=== PATIENT | female | born 1960 | race Caucasian/White ===

== ENCOUNTER 2016-12-12 15:15 | Observation (INO) ==
[2016-12-12] MEDS ORDERED: Aspirin 81 MG TAB.CHEW PO ONE (15:54)
[2016-12-12] MEDS ORDERED: Lidocaine -MPF 1% 5 ML AMPUL INFILT ONE (15:57)
--- NOTE | 2016-12-12 15:57 | Emergency Department Note ---
Disposition Clinical Impression: Chest pain Qualifiers: Chest pain type: unspecified Qualified Code(s): R07.9 - Chest pain, unspecified Disposition: Admitted As Inpatient Condition: Good Forms: ED Satisfaction Letter Time of Disposition: 17:11 Chest Pain HPI - General Chief Complaint: ED Chest Pain Stated Complaint: chest pain Time Seen by Provider: 12/12/16 15:39 Source: patient, EMS Mode of arrival: EMS Limitations: no limitations Vital Signs Reviewed: Yes Nursing Notes Reviewed: Yes - History of Present Illness HPI Narrative: 56-year-old has had some intermittent chest pain for the last week. Patient states she's had no recent cardiac workup. Multiple risk factors. Pt complaint: chest pain Onset (ago): Just [employer] Duration: intermittent Onset: during rest Pain Location: substernal, left chest Quality: tightness, aching Improves with: nothing Worsens with: exertion Associated symptoms: Reports: dyspnea Treatments prior to arrival chest pain: none - Related Data Home Medications Medication Instructions Recorded Confirmed Lovastatin [Mevacor] 10 mg PO DAILY 12/18/14 09/22/16 Lurasidone [Latuda] 20 mg PO DAILY 12/18/14 09/22/16 Furosemide [Lasix] 40 mg PO BID 09/25/15 09/22/16 Sennosides [Senna] 3 tab PO BID 01/23/16 09/22/16 Ferrous Sulfate [Iron] 325 mg PO DAILY 05/13/16 09/22/16 Gabapentin [Neurontin] 300 mg PO TID 05/13/16 09/22/16 Melatonin [Melatonin] 3 mg PO HS 05/13/16 09/22/16 Escitalopram [Lexapro] 5 mg PO DAILY 06/07/16 09/22/16 Warfarin Sodium [Coumadin] 6 mg PO HS 06/07/16 09/22/16 Polyethylene Glycol 3350 17 gm PO DAILY 07/26/16 09/22/16 [Smoothlax] Acetaminophen [Tylenol] 325 mg PO Q4HR PRN 09/22/16 09/22/16 Benztropine [Cogentin] 1 mg PO DAILY 09/22/16 09/22/16 Cholecalciferol (Vitamin D3) 50,000 unit PO QWEEK 09/22/16 09/22/16 [Vitamin D] Cyclobenzaprine [Flexeril] 5 mg PO BID PRN 09/22/16 09/22/16 Lansoprazole [Prevacid] 30 mg PO DAILY 09/22/16 09/22/16 Metoclopramide [Reglan] 10 mg PO QIDAC 09/22/16 09/22/16 Oxycodone HCl [Oxaydo] 1 - 2 tab PO Q6H PRN 09/22/16 09/22/16 Promethazine [Phenergan] 25 mg PO Q6HR PRN 09/22/16 09/22/16 Sucralfate [Carafate] 1 gm PO TIDAC 09/22/16 09/22/16 Allergies Allergy/AdvReac Type Severity Reaction Status Date / Time ondansetron AdvReac Nausea Verified 11/28/16 19:54 [From Zofran (as hydrochloride)] All systems ED: reviewed and negative except as stated. Constitutional: Denies: fever, chills, weakness, weight change Eyes: Denies: eye pain, eye discharge, vision change ENT ED: Denies: ear pain, throat pain, dental pain, hearing loss, epistaxis, congestion, dysphagia Cardiovascular: Reports: chest pain. Denies: palpitations, dyspnea on exertion , edema, syncope Respiratory: Denies: cough, dyspnea, wheezes, hemoptysis, stridor Gastrointestinal: Denies: abdominal pain, nausea, vomiting, diarrhea, constipation, hematemesis, melena, hematochezia Genitourinary: Denies: dysuria, frequency, hematuria, discharge Musculoskeletal: Denies: back pain, neck pain, arthralgia, myalgia Integumentary: Denies: rash, abrasion, lesions Neurological: Denies: headache, weakness, numbness, paresthesias, confusion, abnormal gait, vertigo Psychiatric: Denies: anxiety, depression, suicidal thoughts, homicidal thoughts , auditory hallucinations, visual hallucinations Endocrine: Denies: fatigue Hematological/Lymphatic: Denies: easy bleeding, easy bruising Allergic/Immunologic: Denies: facial swelling, urticaria Chest Pain PMH - Past Medical History Medical history: Reports: arthritis, CHF, coronary artery disease, CVA, DVT, diabetes, GERD, hypertension, migraine Surgical history: Reports: cholecystectomy, hysterectomy Psychiatric history: Reports: anxiety, bipolar, depression Prior Cardiac Testing/Procedures: Cardiac Angiogram (Report of minimal coronary disease one month ago.) [employer] MODEL MAKER history: Reports: no MINI[employer] MODEL MAKER history - Social History Smoking Status: Never smoker Alcohol use: Reports: none Drug use: Reports: none Physical Exam - General Limitations: no limitations General appearance: alert, in no apparent distress - Head Head exam: atraumatic, normocephalic, normal inspection - Eye Eye exam: Present: normal appearance, PERRL, EOMI - ENT ENT exam: normal exam, normal oropharynx, mucous membranes moist - Neck Neck exam: Present: normal inspection, full ROM, trachea midline - Chest Chest inspection: Present: normal inspection, symmetric chest wall rise - Respiratory Respiratory exam: Present: normal lung sounds bilaterally - Cardiovascular Cardiovascular exam: Present: regular rate, normal rhythm, normal heart sounds - Abdominal Exam Abdominal exam: Present: soft, Non-Tender. Absent: tenderness, distention, guarding, rebound, rigidity - Extremities Exam Extremities exam: Present: normal inspection, full ROM. Absent: tenderness, pedal edema - Expanded Lower Extremity Exam Neurovascular/Tendon exam: Absent: motor deficit, sensory deficit, tendon deficit Gait: not tested/not observed - Back Exam Back exam: Present: normal inspection, full ROM. Absent: tenderness - Neurological Exam Neurological exam: Present: alert, oriented X3 - Psychiatric Psychiatric exam: Present: normal affect, normal mood - Skin Skin exam: Present: warm, dry, intact, normal color Course - Reevaluation(s) Reevaluation #1: 56-year-old multiple risk factors comes in complaining of intermittent chest pain. Initial troponin is negative EKG shows no acute STEMI. Time: 17:09 - Consultations Consultation #1: Discussed with Be Bahena, admit. Time: 17:10 Vital Signs Temperature 97.9 F 12/12/16 15:43 Pulse Rate 73 12/12/16 15:43 Respiratory Rate 20 12/12/16 15:43 Blood Pressure 140/71 12/12/16 15:43 O2 Sat by Pulse Oximetry 94 12/12/16 15:43 Temperature 97.9 F 12/12/16 15:43 Pulse Rate 73 12/12/16 15:43 Respiratory Rate 20 12/12/16 15:43 Blood Pressure 140/71 12/12/16 15:43 O2 Sat by Pulse Oximetry 94 12/12/16 15:43 Oxygen Delivery Oxygen Delivery Room Air Chest Pain - Lab Data Result diagrams: 12/12/16 16:16 12/12/16 16:16 Lab Results 12/12/16 12/12/16 12/12/16 Range/Units 16:16 16:16 16:16 WBC 7.6 (4.3-11.1) K/mcL RBC 3.94 (3.82-4.97) M/mcL Hgb 9.8 L (11.5-15.4) g/dL Hct 34.3 L (35.3-44.9) % MCV 87.1 (83.0-100.0) fL MCH 24.9 L (28.0-33.3) pg MCHC 28.6 L (31.6-35.5) g/dL RDW 19.0 H (11.5-14.5) % Plt Count 208 (140-400) K/mcL MPV 9.2 L (9.4-12.4) fL Immature Gran % 0.4 (0-4) % Seg Neutrophils % 64.9 % Lymphocytes % 25.6 % Monocytes % 7.0 % Eosinophils % 1.8 % Basophils % 0.3 % Neutrophils # 4.9 (1.6-8.9) K/mcL Lymphocytes # 2.0 (0.6-4.6) K/mcL Monocytes # 0.5 (0.0-1.3) K/mcL Eosinophils # 0.1 (0.0-0.6) K/mcL Basophils # 0.0 (0.0-0.2) K/mcL Platelet Estimate Normal (Normal) Hypochromasia Present A (Not Present) Anisocytosis 1+ A (Not Present) PT 25.7 H (9.4-12.1) Seconds INR 2.3 APTT 38.8 H (26.0-36.0) Seconds Sodium 137 (136-145) mEq/L Potassium 3.9 (3.5-4.5) mEq/L Chloride 94 L (98-109) mEq/L Carbon Dioxide 35 H (19-29) mEq/L BUN 15 (7-20) mg/dL Creatinine 1.19 H (0.57-1.11) mg/dL Est GFR ( Amer) 57 L (> 60) Est GFR (Non-Af Amer) 47 L (> 60) BUN/Creatinine Ratio 13 (6-26) Glucose 97 (70-99) mg/dL Calculated Osmolality 285 (280-300) Calcium 9.4 (8.6-10.8) mg/dL Troponin I (0-0.03) ng/mL 12/12/16 Range/Units 16:16 WBC (4.3-11.1) K/mcL RBC (3.82-4.97) M/mcL Hgb (11.5-15.4) g/dL Hct (35.3-44.9) % MCV (83.0-100.0) fL MCH (28.0-33.3) pg MCHC (31.6-35.5) g/dL RDW (11.5-14.5) % Plt Count (140-400) K/mcL MPV (9.4-12.4) fL Immature Gran % (0-4) % Seg Neutrophils % % Lymphocytes % % Monocytes % % Eosinophils % % Basophils % % Neutrophils # (1.6-8.9) K/mcL Lymphocytes # (0.6-4.6) K/mcL Monocytes # (0.0-1.3) K/mcL Eosinophils # (0.0-0.6) K/mcL Basophils # (0.0-0.2) K/mcL Platelet Estimate (Normal) Hypochromasia (Not Present) Anisocytosis (Not Present) PT (9.4-12.1) Seconds INR APTT (26.0-36.0) Seconds Sodium (136-145) mEq/L Potassium (3.5-4.5) mEq/L Chloride (98-109) mEq/L Carbon Dioxide (19-29) mEq/L BUN (7-20) mg/dL Creatinine (0.57-1.11) mg/dL Est GFR ( Amer) (> 60) Est GFR (Non-Af Amer) (> 60) BUN/Creatinine Ratio (6-26) Glucose (70-99) mg/dL Calculated Osmolality (280-300) Calcium (8.6-10.8) mg/dL Troponin I 0.00 (0-0.03) ng/mL - EKG Data EKG attestation: Yes I reviewed and interpreted this EKG. EKG shows normal: sinus rhythm Rate: normal Rhythm: NSR Interpretation: no acute changes Heart Score - Score History: Moderately Suspicious EKG: Non Specific repolarisation Disturbance Age: 45-65 Risk Factors: Equal/Greater than 3 risk factor or history of atherosclerotic disease Troponin: Less than normal limit HEART Score Total: 5
[2016-12-12 16:23] LABS: Basophils % 0.3 %; Hemoglobin 9.8 g/dL (11.5-15.4)
[2016-12-12 16:24] LABS: Eosinophils # 0.1 K/mcL (0.0-0.6); Eosinophils % 1.8 %; Hematocrit 34.3 % (35.3-44.9); Immature Granulocytes % 0.4 % (0-4); Lymphocytes % 25.6 %; Mean Corpuscular HGB Conc 28.6 g/dL (31.6-35.5); Mean Corpuscular Hemoglobin 24.9 pg (28.0-33.3); Mean Corpuscular Volume 87.1 fL (83.0-100.0); Mean Platelet Volume 9.2 fL (9.4-12.4); Monocytes # 0.5 K/mcL (0.0-1.3); Neutrophils # 4.9 K/mcL (1.6-8.9); Platelet Count 208 K/mcL (140-400); Red Blood Count 3.94 M/mcL (3.82-4.97); Segmented Neutrophils % 64.9 %
[2016-12-12 16:31] LABS: INR 2.3; Prothrombin Time 25.7 Seconds (9.4-12.1)
[2016-12-12 16:34] LABS: Activated Partial Thrombo Time 38.8 Seconds (26.0-36.0)
[2016-12-12 16:37] LABS: Calcium 9.4 mg/dL (8.6-10.8); Potassium 3.9 mEq/L (3.5-4.5)
[2016-12-12 16:54] LABS: Anisocytosis 1+ (Not Present); Hypochromasia Present (Not Present); Platelet Estimate Normal (Normal)
[2016-12-12] MEDS ORDERED: Acetaminophen 325 MG TABLET PO PRN (21:19)
[2016-12-12] MEDS ORDERED: Naloxone 0.4 MG/ML INJ IVP PRN (21:19)
[2016-12-12] MEDS ORDERED: Ondansetron 4 MG/2 ML VIAL IVP PRN (21:19)
[2016-12-12] MEDS ORDERED: Artificial Tears SOLN 15 ML BOTTLE OP PRN (21:24)
--- NOTE | 2016-12-12 21:55 | Internal Med History&Physical ---
<ClaritzakahlilwilmerBe darnell - Last Filed: 12/12/16 22:34> Date of Encounter: 12/12/16 Time of Encounter: 20:30 Assessment and Plan (1) Chest pain Current visit: Yes Status: Acute Patient presents with acute chest pain that she reports as intermittent over the past week. Patient denies any recent cardiac workup. She states that her chest pain is located in her left chest without radiation but that it worsens with exertion. Initial troponin is 0.00. Will trend troponin x2. Echocardiogram ordered. D-dimer and CTA of the chest ordered to rule out possible PE due to patient's hx of DVT. If D-dimer and troponin negative, then will schedule nuclear stress test tomorrow with patient to be NPO at midnight. Will consider cardiology consult based on echocardiogram and/or stress test results. Patient placed on continuous cardiac telemetry and supplemental O2 with SpO2 monitoring. Qualifiers: Chest pain type: other chest pain Qualified Code(s): R07.89 - Other chest pain; R07.8 - Other chest pain (2) CHF (congestive heart failure) Current visit: Yes Status: Chronic Patient presents with history of chronic CHF. Patient is currently reporting mild SOB and 1-View CXR today shows there is pulmonary vascular congestion basilar airspace disease bilaterally compatible with pulmonary edema. Overall this appears decreased when compared to the previous exam from 11/28/16. Will hold patient's PO lasix and administer IVP Lasix 40 mg BID. Patient placed on supplemental O2 with continuous SpO2 monitoring. Qualifiers: Congestive heart failure type: unspecified congestive heart failure type Congestive heart failure chronicity: unspecified congestive heart failure chronicity Qualified Code(s): I50.9 - Heart failure, unspecified (3) CAD (coronary artery disease) Current visit: Yes Status: Chronic Patient presents with history of CAD. Patient reports chest pain in left chest without radiation. Will continue patient's lovastatin and add Lopressor if patient becomes hypertensive. Will also continue aspirin therapy and Coumadin with pharmacy dosing. Patient placed on continuous cardiac telemetry. Qualifiers: Coronary Disease-Associated Artery/Lesion type: unspecified vessel or lesion type [place] vs. transplanted heart: [place] heart Associated angina: angina presence unspecified Qualified Code(s): I25.10 - Atherosclerotic heart disease of [place] coronary artery without angina pectoris (4) History of DVT of lower extremity Current visit: Yes Status: Chronic Patient reports history of DVTs in lower extremity 6 months ago. Will continue patient's Coumadin with pharmacy dosing. Venous Dopplers of bilateral LEs to rule out DVTs. (5) GERD (gastroesophageal reflux disease) Current visit: Yes Status: Chronic Patient reports history of chronic gastroesophageal reflux disease. IVP Zofran every 6 when necessary and IVP Protonix 40 mg twice a day ordered. Qualifiers: Esophagitis presence: esophagitis presence not specified Qualified Code(s) : K21.9 - Gastro-esophageal reflux disease without esophagitis (6) HTN (hypertension) Current visit: Yes Status: Chronic Patient presents with history of chronic hypertension but does not currently take any antihypertensive medications. Will monitor patient's vital signs and Lopressor if patient becomes hypotensive. Qualifiers: Hypertension type: essential hypertension Qualified Code(s): I10 - Essential (primary) hypertension (7) HLD (hyperlipidemia) Current visit: Yes Status: Chronic Patient presents with history of chronic hyperlipidemia. Lipid panel ordered and will continue patient's lovastatin. Qualifiers: Hyperlipidemia type: pure hypercholesterolemia Qualified Code(s): E78.00 - Pure hypercholesterolemia, unspecified; E78.0 - Pure hypercholesterolemia (8) CKD (chronic kidney disease) stage 3, GFR 30-59 ml/min Current visit: Yes Status: Chronic Patient presents with chronic kidney disease stage III with current GFR of 47. We will use IV fluids judiciously if warranted. Monitor I&O and daily weight. Avoid nephrotoxic agents. Will use lasix judiciously. (9) Anemia Current visit: Yes Status: Chronic Patient presents with chronic anemia with current HGB of 9.8 and HCT of 34.3. Values are relatively unchanged since 08/08/16. We will monitor H&H in follow- up labs. Qualifiers: Anemia type: unspecified type Qualified Code(s): D64.9 - Anemia, unspecified (10) DVT prophylaxis Current visit: Yes Status: Acute Patient to continue Coumadin with pharmacy dosing for DVT prophylaxis. Will monitor patient for bleeding. Internal Medicine - H&P: HPI Chief complaint: Chest pain Admitted From: Emergency Dept Plans for Post Hospital Care: Transfer Custodial Facility History of present illness: Ms. Meza is a 56 year old female with medical history of arthritis, CHF, CAD, CVA greater than 15 years ago, DVT 6 months ago, GERD, hypertension, and migraine presents from the ED with chief complaint of chest pain which she describes as intermittent over the past week. Patient denies any recent cardiac workup. She states that her chest pain is located in her left chest without radiation but that it worsens with exertion. Reports dyspnea but denies abdominal pain, palpitations, recent illness, fever, chills, nausea, vomiting, changes in vision, presyncope, syncope, unusual bleeding, numbness, or tingling. On admission, patient's vital signs include temperature of 97.9F, pulse 73, respiratory rate of 20, blood pressure 140/71, and SPO2 of 94 on room air. Abnormal labs include Hgb 9.8 and HCT of 34.3 which are not far from patient's baseline. Other abnormal labs include creatinine of 1.19, GFR 47. Initial troponin is 0.00z single view CXR today shows pulmonary vascular congestion basilar airspace disease bilaterally compatible with pulmonary edema. Overall this appears decreased when compared to the previous exam from 11/28/16. On examination, patient's HR is RRR, respirations are 18 and unlabored , and there is mild bilateral edema of the LEs. Patient is hemodynamically stable and eating during examination and reports no acute distress. Information taken from patient, chart review, and previous medical records. Ms. Meza is at high risk for cardiac event based on current symptoms and risk factors and will be placed as observation status. Time spent with patient >40 minutes. Past Med Surg Social Fam HX - Past Medical History Source: patient, old records reviewed Medical history: arthritis, CHF, coronary artery disease, CVA, DVT, diabetes, GERD, hypertension, migraine Psychiatric history: anxiety, bipolar, depression - Past Surgical History Surgical History: cholecystectomy, hysterectomy (Total) - Social History Smoking Status: Never smoker Smokeless Tobacco Status: No Alcohol use: none Drug use: none Current living situation: Assisted Living (Currently at snf) Activity Level: Uses cane/walker Recent Out of Country Travel Within the Last 8 Weeks: No Exposure or Possible Exposure to Illness During Travel: No - Family History Sister Race: Family Member Ethnicity: Non- Living Status: Age at : 65 Cause of : Metastatic cancer Hx Family Cancer: Yes (Metastatic) Father Race: Family Member Ethnicity: Non- Living Status: Hx Family Cancer: Yes (unknown) Mother Race: Family Member Ethnicity: Non- Living Status: Age at : 64 Cause of : Cervical cancer Hx Family Cancer: Yes (Cervical) Brother Race: Family Member Ethnicity: Non- Living Status: Age at : 35 Cause of : in his sleep Internal Medicine - H&P: Meds Lovastatin [Mevacor] 10 mg PO QPM 12/18/14 [History] Lurasidone [Latuda] 20 mg PO DAILY 12/18/14 [History] Furosemide [Lasix] 80 mg PO QAM 09/25/15 [History] Sennosides [Senna] 25.8 mg PO BID 01/23/16 [History] Ferrous Sulfate [Iron] 325 mg PO DAILY 05/13/16 [History] Gabapentin [Neurontin] 300 mg PO TID 05/13/16 [History] Melatonin [Melatonin] 6 mg PO HS 05/13/16 [History] Escitalopram [Lexapro] 10 mg PO DAILY 06/07/16 [History] Polyethylene Glycol 3350 [Smoothlax] 17 gm PO DAILY 07/26/16 [History] Acetaminophen [Tylenol] 650 mg PO Q4HR PRN 09/22/16 [History] Cholecalciferol (Vitamin D3) [Vitamin D] 50,000 unit PO Q2W 09/22/16 [History] Metoclopramide [Reglan] 10 mg PO QID 09/22/16 [History] Oxycodone HCl [Oxaydo] 5 - 10 mg PO Q6H PRN 09/22/16 [History] Promethazine [Phenergan] 25 mg PO Q6HR PRN 09/22/16 [History] Carboxymethylcellulose Sodium [Refresh Liquigel] 1 drop OP Q4H PRN 12/12/16 [ History] Omeprazole [PriLOSEC] 20 mg PO DAILY 12/12/16 [History] Warfarin [Coumadin] 3 mg PO HS 12/12/16 [History] Warfarin [Coumadin] 4 mg PO HS 12/12/16 [History] 3 Allergy/AdvReac Type Severity Reaction Status Date / Time ondansetron AdvReac Nausea Verified 11/28/16 19:54 [From Zofran (as hydrochloride)] All Systems PM: A 10-system review of systems was performed and is negative for pertinent findings except as documented above in the HPI. - Constitutional Constitutional: as per HPI (Leg weakness), weakness, no chills, no fever(s), no night sweats - EENT Eyes: no change in vision, no discharge, no pain, no photophobia Ears: no ear discharge, no ear pain, no tinnitus Nose, mouth and throat: no dysphagia, no nasal discharge, no neck pain, no sore throat - Breasts Breasts: as per HPI - Cardiovascular Cardiovascular ROS IM: as per HPI, chest pain, dyspnea, dyspnea on exertion - Respiratory Respiratory: as per HPI, dyspnea, dyspnea on exertion - Gastrointestinal Gastrointestinal: no abdominal pain, no diarrhea, no hematemesis, no hematochezia, no melena, no nausea, no vomiting - Genitourinary Genitourinary: no change in urinary stream, no dysuria, no flank pain, no hematuria Menstruation: as per HPI - Musculoskeletal Musculoskeletal ROS IM: back pain, no numbness, no tingling - Integumentary Integumentary IM: no rash, no unusual bruising - Neurological Neurological ROS: no confusion, no convulsions, no focal weakness, no numbness, no tingling, no tremor(s) - Psychiatric Psychiatric: as per HPI - Endocrine Endocrine IM: as per HPI - Hematologic/Lymphatic Hematologic/Lymphatic: no easy bruising - Allergic/Immunologic Allergic/Immunologic: as per HPI - Constitutional Vitals: Temp Pulse Resp BP Pulse Ox 97.9 F 85 20 123/60 95 12/12/16 15:43 12/12/16 18:58 12/12/16 19:45 12/12/16 19:45 12/12/16 18:58 General appearance: Present: cooperative, A&O X 3, morbidly obese, pleasant, no acute distress, answers questions appropriately - Head Head exam: Present: atraumatic, normocephalic - Eye Eye exam: Present: PERRL, conjuntiva pink, sclera anicteric Pupils: Present: PERRL - ENT ENT exam: Present: normal exam, normal external ear exam - Neck Neck exam general surgery: Present: normal inspection, supple, trachea midline. Absent: lymphadenopathy - Respiratory Respiratory exam: Present: decreased breath sounds - Cardiovascular Cardiovascular exam: Present: RRR, +S1, +S2. Absent: diastolic murmur, gallop, rubs, systolic murmur - GI/Abdominal GI/Abdominal exam: Present: normal bowel sounds, soft, no peritoneal signs. Absent: distended, tenderness - Rectal Rectal exam: Present: deferred - Additional comments: exam deferred. - Extremities Exam Extremities exam: Present: pedal edema, warm, radial pulses palpable and symmetrical - Back Exam Back exam: Present: normal inspection - Neurological Exam Neurological exam: Present: CN II-XII intact, oriented X3, no focal deficits. Absent: pronater drift, facial droop, speech deficit - Psychiatric Psychiatric exam: Present: normal affect, normal mood - Skin Skin exam: Present: dry, intact Internal Med - H&P Results - Labs CBC & Chem 7: 12/12/16 16:16 12/12/16 16:16 - EKG Data EKG shows normal: sinus rhythm - EKG Data Prior EKG available for review: no EKG comments: 12/12/16 22:00 EKG dated 12/12/16 shows sinus rhythm with low QRS voltage in precordial leads, borderline ECG. - Diagnostic Studies Chest x-ray Additional comments: Impressions Chest X-Ray 12/12/16 15:55 IMPRESSION: There is pulmonary vascular congestion basilar airspace disease bilaterally, compatible with pulmonary edema. Overall, the appears decreased when compared to the previous exam from 11/28/2016. D/ / Jonnathan Ocampo MD / Jonnathan Ocampo MD Interpreting Provider: Jonnathan Ocampo MD <Ronald Villalobos - Last Filed: 12/13/16 01:12> Date of Encounter: 12/13/16 Internal Medicine - H&P: HPI History of present illness: Ms. Meza is a 56 year old female All Systems PM: A 10-system review of systems was performed and is negative for pertinent findings except as documented above in the HPI. - Constitutional Vitals: Temp Pulse Resp BP Pulse Ox 98.3 F 86 16 146/84 97 12/12/16 23:15 12/12/16 23:15 12/12/16 23:15 12/12/16 23:15 12/12/16 23:15 Internal Med - H&P Results - Labs CBC & Chem 7: 12/12/16 16:16 12/12/16 16:16 - Attending Attestation I examined this patient and my medical decision-making was reviewed with the Resident Physician. I agree with the documented findings, disposition and treatment plan as described except to the extent set forth below. Patient is a 56-year-old female with past medical history of arthritis, CHF, coronary artery disease, CVA, DVT, diabetes, GERD, hypertension, anxiety, bipolar disorder and depression. Patient presents to ED with complaints of chest pain. Initial workup in the ED is negative. Patient is being admitted for chest pain to rule out ACS. CT angiogram chest is pending to rule out acute PE. D-dimer is negative. All home medications will be continued. Patient is on Coumadin for anticoagulation. IV Lasix will also be continued for CHF. Patient has no other acute complaints at this time. Heart rate 86, blood pressure 146/84, O2 sat 97% on room air. Heart S1-S2 positive. Lungs decreased breath sounds in both bases, otherwise clear. Abdomen soft nontender. extremities bilateral lower leg edema.
[2016-12-12] MEDS: Ipratropium/Albuterol Neb 3 ML IH SCH (22:08)
[2016-12-13] MEDS: Furosemide 40 MG/4 ML VIAL IVP SCH ×3 (00:18→16:53)
[2016-12-13] MEDS: *HR* LORazepam 1 MG TABLET PO PRN ×2 (00:18→22:33)
[2016-12-13] MEDS: Melatonin 3 MG TABLET PO SCH ×2 (00:18→22:33)
[2016-12-13] MEDS: *HR* Morphine 2 MG/ML SYRINGE IVP PRN ×3 (00:58→16:53)
[2016-12-13 03:32] LABS: Basophils % 0.4 %; Eosinophils # 0.1 K/mcL (0.0-0.6); Eosinophils % 1.5 %; Hematocrit 32.7 % (35.3-44.9); Hemoglobin 9.6 g/dL (11.5-15.4); Immature Granulocytes % 0.3 % (0-4); Lymphocytes # 1.9 K/mcL (0.6-4.6); Lymphocytes % 25.8 %; Mean Corpuscular HGB Conc 29.4 g/dL (31.6-35.5); Mean Corpuscular Hemoglobin 25.5 pg (28.0-33.3); Mean Corpuscular Volume 86.7 fL (83.0-100.0); Mean Platelet Volume 9.5 fL (9.4-12.4); Monocytes # 0.5 K/mcL (0.0-1.3); Monocytes % 6.3 %; Neutrophils # 4.8 K/mcL (1.6-8.9); Platelet Count 191 K/mcL (140-400); Red Blood Count 3.77 M/mcL (3.82-4.97); Red Cell Distribution Width 19.1 % (11.5-14.5); Segmented Neutrophils % 65.7 %
[2016-12-13 03:44] LABS: Hemoglobin A1C 5.7 %
[2016-12-13 03:47] LABS: INR 2.1; Prothrombin Time 23.5 Seconds (9.4-12.1)
[2016-12-13 03:50] LABS: Activated Partial Thrombo Time 36.7 Seconds (26.0-36.0)
[2016-12-13 03:51] LABS: Alanine Aminotransferase 8 Units/L (0-55); Albumin 2.9 g/dL (3.5-5.0); Albumin/Globulin Ratio 0.7 (1.1-2.2); Alkaline Phosphatase 92 Units/L (38-126); Aspartate Amino Transferase 12 Units/L (5-34); BUN/Creatinine Ratio 13 (6-26); Bilirubin,Total 0.6 mg/dL (0.2-1.2); Blood Urea Nitrogen 14 mg/dL (7-20); Calcium 9.2 mg/dL (8.6-10.8); Carbon Dioxide 35 mEq/L (19-29); Chloride 98 mEq/L (98-109); Chol/HDL Ratio 4.4 (0-4.9); Cholesterol 180 mg/dL (< 200); Glucose 112 mg/dL (70-99); HDL Cholesterol 41 mg/dL (40-59); LDL Cholesterol,Calculated 115 mg/dL (0-99); Magnesium 1.7 mg/dL (1.6-2.6); Osmolality,Calculated 293 (280-300); Potassium 3.6 mEq/L (3.5-4.5); Sodium 141 mEq/L (136-145); Total Protein 6.9 g/dL (6.0-8.3); Triglycerides 121 mg/dL (< 150); eGFR For African Americans > 60 (> 60); eGFR For Non-African Americans 54 (> 60)
[2016-12-13] MEDS: Ipratropium/Albuterol Neb 3 ML IH SCH ×4 (03:58→20:15)
[2016-12-13] MEDS ORDERED: Perflutren Lipid Microsphere 1.3 ML in 0.9 % Sodium Chloride 8.7 ML IVP ONE (07:06)
[2016-12-13] MEDS: Cholecalciferol (D-3) 1,000 UNIT TABLET PO SCH (08:45)
[2016-12-13] MEDS: Pantoprazole 40 MG VIAL IVP SCH ×2 (08:45→20:27)
[2016-12-13] MEDS: Lurasidone 20 MG TABLET PO SCH (08:46)
[2016-12-13] MEDS: Gabapentin 300 MG CAPSULE PO SCH ×3 (08:46→20:27)
[2016-12-13] MEDS ORDERED: Sennosides 8.6 MG TABLET PO SCH (09:00)
[2016-12-13] MEDS: *HR* HYDROcodone/Acet 5/325 mg TABLET PO PRN ×2 (14:13→22:33)
--- NOTE | 2016-12-13 14:34 | Internal Med Progress Note ---
Date of Encounter: 12/13/16 Time of Encounter: 14:30 - Assessment and plan (1) Chest pain Current Visit: No Status: Acute Assessment and plan: with associated SOB that started one week prior to presentation. Serial troponin negative, EKG without acute ST changes. ASA given on arrival. Wells score with moderate probability pulmonary embolism. D-dimer less than 500. Unable to do chest CTA as patient is too large. Discussed case with [facility] transfer center and patient's ABD girth is too large for theor machine as well. Already on Coumadin for hx DVT. Stress test pending. Consult Cardiology if needed. Qualifiers: Chest pain type: unspecified Qualified Code(s): R07.9 - Chest pain, unspecified (2) Diastolic CHF Current Visit: No Status: Chronic Assessment and plan: per hx. Symptomatic with SOB and lower extremity edema. CXR with pulmonary vascular congestion basilar airspace disease bilaterally compatible with pulmonary edema. 12/13/2016 TTE with EF 60% and moderate diastolic function. Continue holding home lasix. IV Lasix for now. Strict I and O's, daily weights. Qualifiers: Congestive heart failure chronicity: acute on chronic Qualified Code(s): I50.33 - Acute on chronic diastolic (congestive) heart failure (3) COPD (chronic obstructive pulmonary disease) Current Visit: No Status: Chronic Qualifiers: COPD type: unspecified COPD Qualified Code(s): J44.9 - Chronic obstructive pulmonary disease, unspecified (4) Anemia Current Visit: Yes Status: Chronic Assessment and plan: per hx. Hgb 9.6. Relatively unchanged since 08/08/16. Intermittently monitor H& H Qualifiers: Anemia type: unspecified type Qualified Code(s): D64.9 - Anemia, unspecified (5) History of DVT of lower extremity Current Visit: Yes Status: Chronic Assessment and plan: details unclear. Has been on Coumadin for over 6 months. Cont home Coumadin ( pharmacy to dose). (6) Morbid obesity with BMI of 70 and over, adult Current Visit: No Status: Chronic Assessment and plan: BMI 81. Lifestyle modifications encouraged (7) DVT prophylaxis Current Visit: Yes Status: Acute Assessment and plan: coumadin - Subjective Interval history: Seen and examined at bedside. Still with complaints of chest pain and SOB. Says chest pain and SOB started a week ago. Chest pain is sharp, radiates to left shoulder and back. Currently rates 7/10. Sx's worse with exertion. Nothing makes better. She is requesting stronger pain medication. - Constitutional Vitals: Temp Pulse Resp BP Pulse Ox 98.2 F 97 19 130/68 92 12/13/16 11:33 12/13/16 11:33 12/13/16 11:33 12/13/16 11:33 12/13/16 11:33 General appearance: Present: cooperative, A&O X 3, morbidly obese, pleasant, no acute distress, answers questions appropriately - Head Head exam: Present: atraumatic, normocephalic - Eye Eye exam: Present: PERRL, conjuntiva pink, sclera anicteric Pupils: Present: PERRL - Neck Neck exam general surgery: Present: supple, trachea midline. Absent: lymphadenopathy - Respiratory Respiratory exam: Present: CTAB. Absent: accessory muscle use, rales, rhonchi, wheezes - Cardiovascular Cardiovascular exam: Present: RRR, +S1, +S2. Absent: diastolic murmur, gallop, rubs, systolic murmur - GI/Abdominal GI/Abdominal exam: Present: normal bowel sounds, soft, no peritoneal signs. Absent: distended, tenderness - Extremities Exam Extremities exam: Present: warm, radial pulses palpable and symmetrical. Absent : calf tenderness, cyanotic, pedal edema - Neurological Exam Neurological exam: Present: CN II-XII intact, oriented X3, no focal deficits. Absent: pronater drift, facial droop, speech deficit - Skin Skin exam: Present: dry, intact Internal Medicine: Result - Labs CBC & Chem 7: 12/13/16 03:05 12/13/16 03:05 Labs: Short CBC 12/13/16 Range/Units 03:05 WBC 7.3 (4.3-11.1) K/mcL Hgb 9.6 L (11.5-15.4) g/dL Hct 32.7 L (35.3-44.9) % Plt Count 191 (140-400) K/mcL Neutrophils # 4.8 (1.6-8.9) K/mcL BMP 12/13/16 03:05 Sodium 141 Potassium 3.6 Chloride 98 Carbon Dioxide 35 H BUN 14 Creatinine 1.05 Glucose 112 H Calcium 9.2 Cardiac Enzymes 12/13/16 12/13/16 Range/Units 03:05 11:50 Troponin I 0.00 0.00 (0-0.03) ng/mL Liver Function 12/13/16 Range/Units 03:05 Total Bilirubin 0.6 (0.2-1.2) mg/dL AST 12 (5-34) Units/L ALT 8 (0-55) Units/L Alkaline Phosphatase 92 (38-126) Units/L Albumin 2.9 L (3.5-5.0) g/dL - ABG Interpretation ABG results: PT/INR, D-dimer PT 23.5 Seconds (9.4-12.1) H 12/13/16 03:05 D-Dimer < 215 ng/mLFEU (0-500) 12/12/16 22:44 - Impressions Impressions Echocardiogram 12/12/16 21:30 Impressions: Technically sub-optimal due to poor echocardiographic windows. Grossly normal LV systolic function, LVEF 60%. Not all myocardial segments were well visualized. Moderate left ventricular diastolic dysfunction. Mildly dilated right ventricle with normal function. No significant valvular dysfunction. Unable to estimate RVSP due to lack of TR jet. Left Ventricular Wall Motion: Rest Echo Findings All wall segments showed normal motion. Findings: Study Quality * Technically sub-optimal due to poor echocardiographic windows. ECG Findings * Normal sinus rhythm. Left Ventricle * Grossly normal LV systolic function, LVEF 60%. Not all myocardial segments were well visualized. * Normal LV chamber size and wall thickness. * Moderate left ventricular diastolic dysfunction. Right Ventricle * Mildly dilated right ventricle with normal function. Left Atrium * Normal left atrial size. Right Atrium * Right atrium is not well visualized. Aorta * Normally sized aortic root. Pericardium * There is no pericardial effusion present. IVC * The IVC is not dilated. Aortic Valve * Aortic valve not well visualized. * No aortic stenosis. * No aortic regurgitation. Mitral Valve * Normal mitral valve structure. * No mitral stenosis. * Trace mitral regurgitation. Tricuspid Valve * Tricuspid valve not well visualized. * No tricuspid stenosis. * Trace tricuspid regurgitation. * Unable to estimate RVSP due to lack of TR jet. Pulmonic Valve * Pulmonic valve not well visualized. * No pulmonic stenosis. * Trace pulmonic regurgitation. Consult Discharge Plan - Plan Referrals: NONE,PCP [Primary Care Provider] -
[2016-12-13] MEDS ORDERED: *HR* Warfarin 3 MG TABLET PO ONE (18:00)
[2016-12-13] MEDS ORDERED: Warfarin perPT PO PRN (18:00)
[2016-12-13] MEDS ORDERED: *HR* Warfarin 4 MG TABLET PO ONE ×2 (18:00)
--- NOTE | 2016-12-13 18:37 | Electrocardiograph Report ---
[place] [id number] Test Date: 2016-12-12 Pat Name: Alyson Meza Department: 104 Room: 3B23 Gender: F Election Assistant: : 1960 Requested By: Home [facility] Order Number: [id number] Reading MD: Kimberlyn Varela Measurements Intervals [place] Rate: 78 P: 70 LA: 145 QRS: 61 QRSD: 96 T: 57 QT: 380 QTc: 414 Interpretive Statements SINUS RHYTHM LOW QRS VOLTAGE IN PRECORDIAL LEADS Electronically Signed On 12-13-2016 18:35:53 EDT by Kimberlyn Varela
[2016-12-13] MEDS ORDERED: Simethicone 80 MG TAB.CHEW PO PRN (18:43)
[2016-12-13] MEDS: Sennosides/Docusate Sodium TABLET PO SCH (22:33)
[2016-12-14] MEDS: *HR* Morphine 2 MG/ML SYRINGE IVP PRN ×2 (03:25→10:12)
[2016-12-14 04:11] LABS: INR 1.8; Prothrombin Time 19.7 Seconds (9.4-12.1)
[2016-12-14] MEDS: Ipratropium/Albuterol Neb 3 ML IH SCH ×3 (06:00→15:20)
[2016-12-14 06:44] LABS: Hematocrit 33.4 % (35.3-44.9); Hemoglobin 9.5 g/dL (11.5-15.4); Mean Corpuscular HGB Conc 28.4 g/dL (31.6-35.5); Mean Corpuscular Hemoglobin 25.1 pg (28.0-33.3); Mean Corpuscular Volume 88.1 fL (83.0-100.0); Mean Platelet Volume 9.6 fL (9.4-12.4); Platelet Count 207 K/mcL (140-400); Red Blood Count 3.79 M/mcL (3.82-4.97)
[2016-12-14] MEDS ORDERED: Regadenoson 0.4 MG/5 ML SYRINGE IVP ONE (06:56)
[2016-12-14 07:10] LABS: Alanine Aminotransferase 7 Units/L (0-55); Albumin 2.8 g/dL (3.5-5.0); Albumin/Globulin Ratio 0.7 (1.1-2.2); Alkaline Phosphatase 88 Units/L (38-126); Aspartate Amino Transferase 10 Units/L (5-34); BUN/Creatinine Ratio 16 (6-26); Bilirubin,Total 0.5 mg/dL (0.2-1.2); Blood Urea Nitrogen 17 mg/dL (7-20); Calcium 9.1 mg/dL (8.6-10.8); Carbon Dioxide 36 mEq/L (19-29); Chloride 97 mEq/L (98-109); Globulin 4.1 g/dL (2.4-3.5); Glucose 114 mg/dL (70-99); Osmolality,Calculated 288 (280-300); Potassium 3.9 mEq/L (3.5-4.5); Sodium 138 mEq/L (136-145); Total Protein 6.9 g/dL (6.0-8.3); eGFR For African Americans > 60 (> 60); eGFR For Non-African Americans 53 (> 60)
[2016-12-14] MEDS ORDERED: Aspirin 81 MG TAB.CHEW PO SCH (09:00)
[2016-12-14] MEDS: Cholecalciferol (D-3) 1,000 UNIT TABLET PO SCH (10:08)
[2016-12-14] MEDS: Gabapentin 300 MG CAPSULE PO SCH ×2 (10:08→16:56)
[2016-12-14] MEDS: Sennosides/Docusate Sodium TABLET PO SCH (10:08)
[2016-12-14] MEDS: Lurasidone 20 MG TABLET PO SCH (10:09)
[2016-12-14] MEDS: Pantoprazole 40 MG VIAL IVP SCH (10:12)
[2016-12-14] MEDS: Furosemide 40 MG/4 ML VIAL IVP SCH ×2 (10:12→16:53)
--- NOTE | 2016-12-14 11:11 | Cardiology Consult Note ---
Date of Encounter: 12/14/16 Time of Encounter: 10:00 Assessment and Plan (1) Chest pain Current Visit: No Status: Acute Patient presents with non-cardiac chest pain. Symptoms have been persistent for the past week and patient has reproducible chest wall tenderness upon palpation. Troponins x4 have been negative. ECG does not demonstrate ischemic findings and is similar when compared to prior ECG. Echo demonstrates normal LV systolic function. Additionally, she had a LHC in 2015 demonstrating only mild CAD. Symptoms at this time to do not appear related to a cardiac cause. Recommend risk factor modification. Will sign off. Patient can be followed as an outpatient. Qualifiers: Chest pain type: unspecified Qualified Code(s): R07.9 - Chest pain, unspecified Discussion w patient/family: The assessment and plan as outlined above was discussed with the patient and/or family members who expressed understanding and agreement. All questions were answered. Thank you for involving us in the care of your patient. Please call with any questions. History of Present Illness Consult date: 12/14/16 Requesting physician: Kim Griffith Consult reason: Chest Pain Chief complaint: Chest Pain History of present illness: Ms. Meza is a 56 year old female presenting with chest pain. Patient states she developed chest pain about a week ago and went to the ER where she had an unremarkable cardiac workup, per patient, and was sent home. Her discomfort has persisted since that time without resolution which prompted her visit on . This is located in the left upper chest area and left shoulder described as constant pain without worsening with exertion. She otherwise denies pre syncopal symptoms, syncope or palpitations. Past Med Surg Social Fam HX - Past Medical History Attestation: Yes The following information was validated with the patient. Medical history: arthritis, CHF, coronary artery disease, CVA, DVT, diabetes, GERD, hypertension, migraine Psychiatric history: anxiety, bipolar, depression - Past Surgical History Surgical History: cholecystectomy, hysterectomy - Social History Smoking Status: Never smoker Smokeless Tobacco Status: No Alcohol use: none Drug use: none - Family History Mother Race: Family Member Ethnicity: Non- Living Status: Age at : 64 Cause of : Cervical cancer Hx Family Cancer: Yes (Cervical) Brother Race: Family Member Ethnicity: Non- Living Status: Age at : 35 Cause of : in his sleep Sister Race: Family Member Ethnicity: Non- Living Status: Age at : 65 Cause of : Cancer Hx Family Cancer: Yes (Breast) Father Race: Family Member Ethnicity: Non- Living Status: Hx Family Cancer: Yes (unknown) Hx Family Endocrine Disorder: No Medications and Allergies Lovastatin [Mevacor] 10 mg PO QPM 12/18/14 [History] Lurasidone [Latuda] 20 mg PO DAILY 12/18/14 [History] Furosemide [Lasix] 80 mg PO QAM 09/25/15 [History] Sennosides [Senna] 25.8 mg PO BID 01/23/16 [History] Ferrous Sulfate [Iron] 325 mg PO DAILY 05/13/16 [History] Gabapentin [Neurontin] 300 mg PO TID 05/13/16 [History] Melatonin [Melatonin] 6 mg PO HS 05/13/16 [History] Escitalopram [Lexapro] 10 mg PO DAILY 06/07/16 [History] Polyethylene Glycol 3350 [Smoothlax] 17 gm PO DAILY 07/26/16 [History] Acetaminophen [Tylenol] 650 mg PO Q4HR PRN 09/22/16 [History] Cholecalciferol (Vitamin D3) [Vitamin D] 50,000 unit PO Q2W 09/22/16 [History] Metoclopramide [Reglan] 10 mg PO QID 09/22/16 [History] Oxycodone HCl [Oxaydo] 5 - 10 mg PO Q6H PRN 09/22/16 [History] Promethazine [Phenergan] 25 mg PO Q6HR PRN 09/22/16 [History] Carboxymethylcellulose Sodium [Refresh Liquigel] 1 drop OP Q4H PRN 12/12/16 [ History] Omeprazole [PriLOSEC] 20 mg PO DAILY 12/12/16 [History] Warfarin [Coumadin] 7 mg PO HS 12/12/16 [History] 3 Allergy/AdvReac Type Severity Reaction Status Date / Time ondansetron AdvReac Nausea Verified 11/28/16 19:54 [From Zofran (as hydrochloride)] All Systems Review: A 10-system review of systems was performed and is negative for pertinent findings except as documented above in the HPI. - Cardiovascular Cardiovascular: as per HPI Physical Examination Vital Signs, Last 4 Hours Temp Pulse Resp BP Pulse Ox 12/14/16 07:43 98.1 F 64 19 125/77 93 General: Conversant, No Apparent Distress HEENT: Mucus Membranes Moist Neck: Other (JVP difficult to appreciate) Cardiac: Reg Rate and Rhythm, Normal S1 and S2, No Murmur Lungs: Normal Breath Sounds, No Wheeze, Rales, Rhonchi Neuro: Alert and responsive, No focal deficits noted Abdomen: Soft, Non-Tender, Other (bowel sounds present) Musculoskeletal: Other (left sided chest wall tenderness upon palpation) Extremities: Other (bilateral LE edema is present) Results 12/14/16 03:31 12/14/16 03:31 Lab Results 12/13/16 12/14/16 12/14/16 11:50 03:31 03:31 WBC 8.3 Hgb 9.5 L Hct 33.4 L Plt Count 207 INR 1.8 Sodium Potassium Chloride Carbon Dioxide BUN Creatinine Glucose Calcium Total Bilirubin AST ALT Alkaline Phosphatase Troponin I 0.00 12/14/16 03:31 WBC Hgb Hct Plt Count INR Sodium 138 Potassium 3.9 Chloride 97 L Carbon Dioxide 36 H BUN 17 Creatinine 1.07 Glucose 114 H Calcium 9.1 Total Bilirubin 0.5 AST 10 ALT 7 Alkaline Phosphatase 88 Troponin I - Imaging and Cardiology Chest Xray: report reviewed Echo: report reviewed Cardiac cath: report reviewed (2014) - EKG Interpretation EKG results cardiology: personally reviewed (ECG demonstrates NSR without ischemic ECG findings and is similar when compared to ECG dated 09/25/2015.) Consult Discharge Plan - Plan Referrals: NONE,PCP [Primary Care Provider] -
[2016-12-14 15:48] VITALS: BP 126/71
[2016-12-14] MEDS: *HR* HYDROcodone/Acet 5/325 mg TABLET PO PRN (16:54)
--- NOTE | 2016-12-14 17:33 | Discharge Summary ---
Date of Encounter: 12/14/16 Time of Encounter: 17:31 - Discharge Diagnosis (1) CAD (coronary artery disease) Priority: Primary Status: Acute Comments: per hx. with associated SOB that started one week prior to presentation. Serial troponin negative, EKG without acute ST changes. ASA given on arrival. Wells score with moderate probability pulmonary embolism. D-dimer less than 500. Unable to do chest CTA as patient is too large. Discussed case with [facility] transfer center and patient's ABD girth is too large for their machine as well. Already on Coumadin for hx DVT. Plan was for stress test however patient weight is over the maximum limit for [facility] capacity. Evaluated by cardiology who did not feel true ACS, suspect musculoskeletal etiology given that chest pain has been present for over a week and was reproducible on exam. Cont ASA, Coumadin, statin Qualifiers: Coronary Disease-Associated Artery/Lesion type: [place] artery [place] vs. transplanted heart: [place] heart Associated angina: without angina Qualified Code(s): I25.10 - Atherosclerotic heart disease of [place] coronary artery without angina pectoris (2) Diastolic CHF Priority: Primary Status: Acute Comments: per hx. Symptomatic with SOB and lower extremity edema. CXR with pulmonary vascular congestion basilar airspace disease bilaterally compatible with pulmonary edema. 12/13/2016 TTE with EF 60% and moderate diastolic function. Initially diuresed with IV Lasix. Resume home lasix. Recommend strict I and O' s, daily weights, and follow-up with cardiology within 2 weeks Qualifiers: Congestive heart failure chronicity: acute on chronic Qualified Code(s): I50.33 - Acute on chronic diastolic (congestive) heart failure (3) COPD (chronic obstructive pulmonary disease) Priority: Primary Status: Acute Comments: per hx. no evidence of exacerbation. Continue home inhalers. Qualifiers: COPD type: unspecified COPD Qualified Code(s): J44.9 - Chronic obstructive pulmonary disease, unspecified (4) Anemia Priority: Primary Status: Chronic Comments: per hx. Hgb 9.6. Relatively unchanged since 08/08/16. Intermittently monitor H& H Qualifiers: Anemia type: unspecified type Qualified Code(s): D64.9 - Anemia, unspecified (5) History of DVT of lower extremity Priority: Primary Status: Chronic Comments: details unclear. Has been on Coumadin for over 6 months. Cont home Coumadin (6) Morbid obesity with BMI of 70 and over, adult Priority: Primary Status: Chronic Comments: BMI 81. Lifestyle modifications encouraged (7) DVT prophylaxis Priority: Secondary Status: Acute Comments: coumadin - Discharge Medications Prescriptions: Aspirin 81 mg PO DAILY #30 tab.chew Oxycodone HCl [Oxaydo] 5 - 10 mg PO Q6H PRN #12 tablet.orl PRN Reason: Pain Home Medications: Lovastatin [Mevacor] 10 mg PO QPM 12/18/14 [History] Lurasidone [Latuda] 20 mg PO DAILY 12/18/14 [History] Furosemide [Lasix] 80 mg PO QAM 09/25/15 [History] Sennosides [Senna] 25.8 mg PO BID 01/23/16 [History] Ferrous Sulfate [Iron] 325 mg PO DAILY 05/13/16 [History] Gabapentin [Neurontin] 300 mg PO TID 05/13/16 [History] Melatonin 6 mg PO HS 05/13/16 [History] Escitalopram [Lexapro] 10 mg PO DAILY 06/07/16 [History] Polyethylene Glycol 3350 [Smoothlax] 17 gm PO DAILY 07/26/16 [History] Acetaminophen [Tylenol] 650 mg PO Q4HR PRN 09/22/16 [History] Cholecalciferol (Vitamin D3) [Vitamin D3] 50,000 unit PO Q2W 09/22/16 [History] Metoclopramide [Reglan] 10 mg PO QID 09/22/16 [History] Promethazine [Phenergan] 25 mg PO Q6HR PRN 09/22/16 [History] Carboxymethylcellulose Sodium [Refresh Liquigel] 1 drop OP Q4H PRN 12/12/16 [ History] Omeprazole [PriLOSEC] 20 mg PO DAILY 12/12/16 [History] Warfarin [Coumadin] 7 mg PO HS 12/12/16 [History] Aspirin 81 mg PO DAILY #30 tab.chew 12/14/16 [Rx] Oxycodone HCl [Oxaydo] 5 - 10 mg PO Q6H PRN #12 tablet.orl 12/14/16 [Rx] Allergies/Adverse Reactions: 3 Allergy/AdvReac Type Severity Reaction Status Date / Time ondansetron AdvReac Nausea Verified 11/28/16 19:54 [From Zofran (as hydrochloride)] Procedures/tests Complete & Pending: Procedures Performed prior 72 hours Category Date Time Status EV echocardiogram Routine Y 12/12/16 21:30 Completed Venous Doppler [EV venous imaging LE BI] Routine Y 12/12/16 21:31 Completed Date of admission: 12/12/16 19:59 Primary care physician: PCP NONE Consults: 12/13/16 09:11 Consult to Sand Technologist [CONS] Routine Reason for SW Consult: Verify waiver services 12/14/16 11:59 Consult to Cardiology [CONS] Routine Comment: Consulting Provider: Cardiology [facility] Reason for Consult: chest pain Call Completed: Yes Discharging clinician: Kim Griffith Anticipated date of discharge: 12/14/16 (34 minutes) - Patient Status Disposition: Transfer LTC Condition: Fair Functional capacity at discharge: bed bound Overall status at discharge: patient is progressing back to baseline - Discharge Instructions Follow Up With: NONE,PCP [Primary Care Provider] - - Diet and Activity Activity: as per physical therapy Diet: diabetic diet Interval History: Seen and examined at bedside. No acute changes and assessment to report. Patient still with intermittent complaints of chest pain shortness of breath chest pain somewhat reproducible on exam, other times not. Discussed the challenges of obtaining necessary diagnostic testing due to weight. Unable to complete stress test as initially planned today as patient's weight is over the limit. Cardiology was consult and did not feel chest pain was ACS in nature. Please see A/P for further details. Hospital course: Ms. Meza is a 56 year old female - Time Spent with Patient Total time spent providing and/or coordinating discharge services: - Constitutional Vitals: Temp Pulse Resp BP Pulse Ox 98.1 F 81 16 126/71 93 12/14/16 15:46 12/14/16 15:46 12/14/16 15:46 12/14/16 15:46 12/14/16 15:46 General appearance: Present: cooperative, A&O X 3, morbidly obese, pleasant, no acute distress, answers questions appropriately - Head Head exam: Present: atraumatic, normocephalic - Eye Eye exam: Present: PERRL, conjuntiva pink, sclera anicteric Pupils: Present: PERRL - Neck Neck exam general surgery: Present: supple, trachea midline. Absent: lymphadenopathy - Respiratory Respiratory exam: Present: CTAB. Absent: accessory muscle use, rales, rhonchi, wheezes - Cardiovascular Cardiovascular exam: Present: RRR, +S1, +S2. Absent: diastolic murmur, gallop, rubs, systolic murmur - GI/Abdominal GI/Abdominal exam: Present: normal bowel sounds, soft, no peritoneal signs. Absent: distended, tenderness - Extremities Exam Extremities exam: Present: warm, radial pulses palpable and symmetrical. Absent : calf tenderness, cyanotic, pedal edema - Neurological Exam Neurological exam: Present: CN II-XII intact, oriented X3, no focal deficits. Absent: pronater drift, facial droop, speech deficit - Skin Skin exam: Present: dry, intact
--- NOTE | 2016-12-14 17:52 | Physician Discharge Referral ---
ExtendedCare Referral Info Transfer To: [facility] and Care Provider in Charge: Kim Arce CNP Provider in Charge after Transfer: Other (COMPUTER GRAPHICS ILLUSTRATOR) Institutional Level of Care: Skilled - Diagnosis (1) CAD (coronary artery disease) Status: Acute (2) Diastolic CHF Status: Acute (3) COPD (chronic obstructive pulmonary disease) Status: Acute (4) Anemia Status: Chronic (5) History of DVT of lower extremity Status: Chronic (6) Morbid obesity with BMI of 70 and over, adult Status: Chronic (7) DVT prophylaxis Status: Acute - Transfer Medications Prescriptions: Aspirin 81 mg PO DAILY #30 tab.chew Oxycodone HCl [Oxaydo] 5 - 10 mg PO Q6H PRN #12 tablet.orl PRN Reason: Pain Home Medications: Lovastatin [Mevacor] 10 mg PO QPM 12/18/14 [History] Lurasidone [Latuda] 20 mg PO DAILY 12/18/14 [History] Furosemide [Lasix] 80 mg PO QAM 09/25/15 [History] Sennosides [Senna] 25.8 mg PO BID 01/23/16 [History] Ferrous Sulfate [Iron] 325 mg PO DAILY 05/13/16 [History] Gabapentin [Neurontin] 300 mg PO TID 05/13/16 [History] Melatonin 6 mg PO HS 05/13/16 [History] Escitalopram [Lexapro] 10 mg PO DAILY 06/07/16 [History] Polyethylene Glycol 3350 [Smoothlax] 17 gm PO DAILY 07/26/16 [History] Acetaminophen [Tylenol] 650 mg PO Q4HR PRN 09/22/16 [History] Cholecalciferol (Vitamin D3) [Vitamin D3] 50,000 unit PO Q2W 09/22/16 [History] Metoclopramide [Reglan] 10 mg PO QID 09/22/16 [History] Promethazine [Phenergan] 25 mg PO Q6HR PRN 09/22/16 [History] Carboxymethylcellulose Sodium [Refresh Liquigel] 1 drop OP Q4H PRN 12/12/16 [ History] Omeprazole [PriLOSEC] 20 mg PO DAILY 12/12/16 [History] Warfarin [Coumadin] 7 mg PO HS 12/12/16 [History] Aspirin 81 mg PO DAILY #30 tab.chew 12/14/16 [Rx] Oxycodone HCl [Oxaydo] 5 - 10 mg PO Q6H PRN #12 tablet.orl 12/14/16 [Rx] Allergies/Adverse Reactions: 3 Allergy/AdvReac Type Severity Reaction Status Date / Time ondansetron AdvReac Nausea Verified 11/28/16 19:54 [From Zofran (as hydrochloride)] - Respiratory Orders Oxygen / L per min (2) Smoking Cessation: Smoking cessation has been advised. For more information, call the [place] Tobacco Quit Line at 0-816-QBXF-NOW. - Lab Orders Lab Orders: Other (include drug levels w/frequency) (INR per ECF physician) - Ancillary Orders May use pressure relief devices daily prn - Advance Directives Living Will: No Power of Curriculum And Instruction Director: No Code Status: Full Code - Mobility Orders Bedrest - Rehabiliation Orders Rehab Potential: Fair Rehab Orders: Evaluation for Physical Therapy, Evaluation for Occupational Therapy - Diet Orders Cardiac CERTIFICATION: I certify that the transfer of the above named patient to an Extended Care Facility is necessary for the continuing treatment of the diagnosis listed. The above information is true and accurate reflection of patient's current condition. Confidential - Redisclosure prohibited without a patient's written consent.
[2016-12-14] MEDS ORDERED: *HR* Warfarin 4 MG TABLET PO SCH (18:00)
[2016-12-14] MEDS ORDERED: *HR* Warfarin 3 MG TABLET PO SCH (18:00)
--- NOTE | 2016-12-15 08:09 | Venous Imaging Report ---
LE Venous Duplex Patient Name:Alyson Meza Order Number:[id number] Procedure Date:12/13/2016 Date:2Age:56 yrs Gender:Female Location:[facility] Room #: 3B23 Supervisor Cooler Service:Leigh Alcazar Referring MD:Be Bahena, FLIGHT SURGEON Reading MD:Kenton Celeste MD Secondary Indications: Risk Factors Yes/No Hypertension Yes Hx of DVT Yes Anticoagulants Yes Hx of Chemotherapy No Impressions: Bilateral lower extremity: normal superficial and deep exam. echnically difficult secondary to obesity Findings Venous Duplex Results: Right: Venous imaging of the lower extremity reveals full patency and normal vessel compressibility of the right distal iliac, right common femoral, right superficial femoral, right popliteal, right posterior tibial, right peroneal, right great saphenous and right lesser saphenous. Doppler signals in the evaluated veins were normal. Both legs were very difficult to see due to body habitus. Left side was even harder due to patients position and how her stomach laid. Left: Venous imaging of the lower extremity reveals full patency and normal vessel compressibility of the left common femoral, left superficial femoral, left popliteal, left posterior tibial, left peroneal and left great saphenous. Doppler signals in the evaluated veins were normal. Lower Extremity Venous Duplex Side Vein Compress Spontaneous Flow Augment Diameter (cm) Depth (cm) Right Distal Iliac Normal Yes Phasic Yes Right Common Femoral Normal Yes Phasic Yes Right Superficial Femoral Normal Yes Phasic Yes Right Popliteal Normal Yes Phasic Yes Right Posterior Tibial Normal Yes Phasic Yes Right Peroneal Normal Yes Phasic Yes Right Great Saphenous Normal Yes Phasic Yes Right Lesser Saphenous Normal Yes Phasic Yes Left Common Femoral Normal Yes Phasic Yes Left Superficial Femoral Normal Yes Phasic Yes Left Popliteal Normal Yes Phasic Yes Left Posterior Tibial Normal Yes Phasic Yes Left Peroneal Normal Yes Phasic Yes Left Great Saphenous Normal Yes Phasic Yes Updated by Kenton Celeste MD on 12/15/2016 6:35:54 AM electronically signed on 12/15/2016 6:36:09 AM with status of Final
== END 2016-12-14 18:20 ==
LOC: 3BNU 15:15 → EMEROO 15:15 → 3BNU 20:11
PROVIDERS: ADMIT Nurse Practitioner Family; ATTEND Registered Nurse

== ENCOUNTER 2019-03-22 14:30 | Inpatient (IN) ==
[2019-03-22] MEDS ORDERED: Naloxone 0.4 MG/ML INJ IVP PRN (16:24)
[2019-03-22 18:26] LABS: Basophils % 0.4 %; Nucleated Red Blood Cells 0.4 /100 WBC (0)
[2019-03-22 18:28] LABS: Eosinophils # 0.2 K/mcL (0.0-0.6); Eosinophils % 3.1 %; Hematocrit 37.6 % (35.3-44.9); Hemoglobin 10.8 g/dL (11.5-15.4); Immature Granulocytes % 0.8 % (0-4); Lymphocytes # 1.7 K/mcL (0.6-4.6); Lymphocytes % 23.1 %; Mean Corpuscular HGB Conc 28.7 g/dL (31.6-35.5); Mean Corpuscular Hemoglobin 26.5 pg (28.0-33.3); Mean Corpuscular Volume 92.4 fL (83.0-100.0); Mean Platelet Volume 9.3 fL (9.4-12.4); Monocytes # 0.5 K/mcL (0.0-1.3); Monocytes % 6.8 %; Neutrophils # 4.9 K/mcL (1.6-8.9); Platelet Count 173 K/mcL (140-400); Red Blood Count 4.07 M/mcL (3.82-4.97); Red Cell Distribution Width 17.2 % (11.5-14.5); Segmented Neutrophils % 65.8 %; White Blood Count 7.5 K/mcL (4.3-11.1)
[2019-03-22 18:31] LABS: ABG Base Excess 9 mEq/L (-2 to 3); ABG HCO3 37 mEq/L (21-27); ABG Oxygen Saturation 95 % (95-98); ABG PCO2 70 mmHg (35-45); ABG PH 7.34 pH Units (7.32-7.45); ABG PO2 85 mmHg (85-104); ABG TCO2 39 mEq/L (20-26)
[2019-03-22 19:07] LABS: Adenovirus Not Detected (Not Detect); Bordetella Pertussis Not Detected (Not Detect); Chlamydophila pneumoniae Not Detected (Not Detect); Coronavirus 229E Not Detected (Not Detect); Coronavirus HKU1 Not Detected (Not Detect); Coronavirus NL63 Not Detected (Not Detect); Coronavirus OC43 Not Detected (Not Detect); Human Metapneumovirus Not Detected (Not Detect); Human Rhinovirus/Enterovirus Not Detected (Not Detect); Influenza A Subtype 2009 H1 Not Detected (Not Detect); Influenza B Not Detected (Not Detect); Mycoplasma pneumoniae Not Detected (Not Detect); Parainfluenza Virus 1 Not Detected (Not Detect); Parainfluenza Virus 2 Not Detected (Not Detect); Parainfluenza Virus 3 Not Detected (Not Detect); Parainfluenza Virus 4 Not Detected (Not Detect); Respiratory Syncytial Virus Not Detected (Not Detect)
[2019-03-22 19:42] LABS: Alanine Aminotransferase 20 Units/L (7-52); Albumin 3.8 g/dL (3.5-5.7); Albumin/Globulin Ratio 1.1 (1.1-2.2); Alkaline Phosphatase 152 Units/L (34-104); Aspartate Amino Transferase 17 Units/L (13-39); BUN/Creatinine Ratio 16 (6-26); Bilirubin,Total 0.5 mg/dL (0.3-1.0); Blood Urea Nitrogen 14 mg/dL (6-20); Calcium 9.2 mg/dL (8.6-10.3); Carbon Dioxide 38 mEq/L (23-29); Chloride 99 mEq/L (98-107); Globulin 3.4 g/dL (2.4-3.5); Glucose 101 mg/dL (70-105); Osmolality,Calculated 293 (280-300); Sodium 141 mEq/L (136-145); Total Protein 7.2 g/dL (6.4-8.9); eGFR For African Americans > 60 (> 60); eGFR For Non-African Americans > 60 (> 60)
[2019-03-22] MEDS ORDERED: Perflutren Lipid Microsphere 1.3 ML in 0.9 % Sodium Chloride 8.7 ML IVP ONE (22:21)
[2019-03-22] MEDS: *HR* HYDROcodone/Acet 5/325 mg TABLET PO PRN (23:10)
[2019-03-22] MEDS: Melatonin 3 MG TABLET PO SCH (23:17)
[2019-03-22] MEDS: risperiDONE 1 MG TABLET PO SCH (23:17)
[2019-03-23] MEDS ORDERED: risperiDONE 1 MG TABLET PO SCH (09:00)
[2019-03-23] MEDS ORDERED: Furosemide 40 MG/4 ML VIAL IVP SCH (09:00)
[2019-03-23] MEDS: Gabapentin 300 MG CAPSULE PO SCH ×3 (10:32→22:37)
[2019-03-23] MEDS: *HR* Rivaroxaban 10 MG TABLET PO SCH (10:32)
[2019-03-23] MEDS: risperiDONE 1 MG TABLET PO SCH (10:32)
[2019-03-23] MEDS: Folic Acid 1 MG TABLET PO SCH (10:32)
[2019-03-23] MEDS: *HR* HYDROcodone/Acet 5/325 mg TABLET PO PRN ×2 (10:32→22:37)
[2019-03-23] MEDS ORDERED: Acetaminophen 325 MG TABLET PO PRN (12:07)
[2019-03-23] MEDS ORDERED: Ergocalciferol (VIT D2) 50,000 UNIT (1.25MG) CAP PO SCH (13:00)
[2019-03-23 13:53] LABS: Basophils % 0.3 %; Immature Granulocytes % 0.5 % (0-4); Red Cell Distribution Width 17.2 % (11.5-14.5)
[2019-03-23 13:54] LABS: Eosinophils # 0.2 K/mcL (0.0-0.6); Eosinophils % 2.6 %; Hemoglobin 10.9 g/dL (11.5-15.4); Lymphocytes # 1.4 K/mcL (0.6-4.6); Lymphocytes % 20.9 %; Mean Corpuscular HGB Conc 29.5 g/dL (31.6-35.5); Mean Corpuscular Volume 91.8 fL (83.0-100.0); Mean Platelet Volume 9.2 fL (9.4-12.4); Monocytes # 0.3 K/mcL (0.0-1.3); Monocytes % 4.5 %; Neutrophils # 4.6 K/mcL (1.6-8.9); Platelet Count 170 K/mcL (140-400); Red Blood Count 4.03 M/mcL (3.82-4.97); Segmented Neutrophils % 71.2 %; White Blood Count 6.5 K/mcL (4.3-11.1)
[2019-03-23 14:10] LABS: BUN/Creatinine Ratio 15 (6-26); Blood Urea Nitrogen 14 mg/dL (6-20); Calcium 9.1 mg/dL (8.6-10.3); Carbon Dioxide 35 mEq/L (23-29); Chloride 96 mEq/L (98-107); Glucose 142 mg/dL (70-105); Osmolality,Calculated 291 (280-300); Potassium 4.3 mEq/L (3.5-5.1); Sodium 139 mEq/L (136-145); eGFR For African Americans > 60 (> 60); eGFR For Non-African Americans > 60 (> 60)
[2019-03-23 14:22] LABS: Platelet Estimate Normal (Normal)
[2019-03-23 14:23] LABS: Hypochromasia Present (Not Present)
[2019-03-23] MEDS: Furosemide 40 MG/4 ML VIAL IVP SCH (17:17)
[2019-03-23] MEDS: Melatonin 3 MG TABLET PO SCH (22:37)
[2019-03-24 07:00] LABS: Hematocrit 38.6 % (35.3-44.9); Hemoglobin 11.2 g/dL (11.5-15.4); Mean Corpuscular Hemoglobin 27.9 pg (28.0-33.3); Mean Platelet Volume 9.7 fL (9.4-12.4); Platelet Count 152 K/mcL (140-400); Red Blood Count 4.02 M/mcL (3.82-4.97); Red Cell Distribution Width 17.2 % (11.5-14.5); White Blood Count 7.2 K/mcL (4.3-11.1)
[2019-03-24 07:06] LABS: VBG HCO3 39 mEq/L (21-27); VBG PCO2 76 mmHg (41-51); VBG PH 7.31 pH Units (7.32-7.42); VBG PO2 56 mmHg (25-50)
[2019-03-24 07:20] LABS: BUN/Creatinine Ratio 17 (6-26); Blood Urea Nitrogen 16 mg/dL (6-20); Calcium 9.4 mg/dL (8.6-10.3); Carbon Dioxide 39 mEq/L (23-29); Chloride 93 mEq/L (98-107); Glucose 114 mg/dL (70-105); Osmolality,Calculated 288 (280-300); Potassium 4.1 mEq/L (3.5-5.1); Sodium 138 mEq/L (136-145); eGFR For African Americans > 60 (> 60); eGFR For Non-African Americans 60 (> 60)
[2019-03-24] MEDS: Furosemide 40 MG/4 ML VIAL IVP SCH ×2 (09:54→17:17)
[2019-03-24] MEDS: Gabapentin 300 MG CAPSULE PO SCH ×3 (09:54→20:01)
[2019-03-24] MEDS: *HR* Rivaroxaban 10 MG TABLET PO SCH (09:54)
[2019-03-24] MEDS: risperiDONE 1 MG TABLET PO SCH (09:54)
[2019-03-24] MEDS: Folic Acid 1 MG TABLET PO SCH (09:54)
[2019-03-24] MEDS: *HR* HYDROcodone/Acet 5/325 mg TABLET PO PRN (11:20)
[2019-03-24] MEDS: Acetaminophen 325 MG TABLET PO PRN (17:16)
[2019-03-24] MEDS: Melatonin 3 MG TABLET PO SCH (23:27)
[2019-03-25 06:19] LABS: VBG HCO3 41 mEq/L (21-27); VBG Ionized Calcium 1.15 mmol/L (1.15-1.35); VBG PCO2 79 mmHg (41-51); VBG PH 7.32 pH Units (7.32-7.42); VBG PO2 130 mmHg (25-50)
[2019-03-25 06:31] LABS: BUN/Creatinine Ratio 18 (6-26); Blood Urea Nitrogen 17 mg/dL (6-20); Calcium 9.3 mg/dL (8.6-10.3); Carbon Dioxide 41 mEq/L (23-29); Chloride 93 mEq/L (98-107); Glucose 104 mg/dL (70-105); Osmolality,Calculated 296 (280-300); Sodium 142 mEq/L (136-145); eGFR For African Americans > 60 (> 60); eGFR For Non-African Americans > 60 (> 60)
[2019-03-25] MEDS: *HR* HYDROcodone/Acet 5/325 mg TABLET PO PRN ×2 (09:01→21:38)
[2019-03-25] MEDS: Folic Acid 1 MG TABLET PO SCH (09:01)
[2019-03-25] MEDS: risperiDONE 1 MG TABLET PO SCH (09:01)
[2019-03-25] MEDS: *HR* Rivaroxaban 10 MG TABLET PO SCH (09:01)
[2019-03-25] MEDS: Gabapentin 300 MG CAPSULE PO SCH ×3 (09:02→21:38)
[2019-03-25] MEDS: Furosemide 40 MG/4 ML VIAL IVP SCH ×2 (09:02→18:43)
[2019-03-25] MEDS: Acetaminophen 325 MG TABLET PO PRN (15:49)
[2019-03-25] MEDS: Melatonin 3 MG TABLET PO SCH (21:38)
[2019-03-26] MEDS ORDERED: *HR* Promethazine 25 MG/ML VIAL IVP ONE (02:46)
[2019-03-26 04:57] LABS: Hematocrit 35.6 % (35.3-44.9); Hemoglobin 10.7 g/dL (11.5-15.4); Mean Corpuscular HGB Conc 30.1 g/dL (31.6-35.5); Mean Corpuscular Hemoglobin 27.2 pg (28.0-33.3); Mean Corpuscular Volume 90.4 fL (83.0-100.0); Mean Platelet Volume 9.3 fL (9.4-12.4); Platelet Count 142 K/mcL (140-400); Red Blood Count 3.94 M/mcL (3.82-4.97); Red Cell Distribution Width 17.2 % (11.5-14.5); White Blood Count 5.7 K/mcL (4.3-11.1)
[2019-03-26 05:04] LABS: VBG HCO3 41 mEq/L (21-27); VBG PCO2 74 mmHg (41-51); VBG PH 7.35 pH Units (7.32-7.42); VBG PO2 71 mmHg (25-50)
[2019-03-26 05:18] LABS: BUN/Creatinine Ratio 18 (6-26); Blood Urea Nitrogen 16 mg/dL (6-20); Calcium 9.1 mg/dL (8.6-10.3); Carbon Dioxide 39 mEq/L (23-29); Chloride 94 mEq/L (98-107); Glucose 107 mg/dL (70-105); Osmolality,Calculated 286 (280-300); Potassium 3.9 mEq/L (3.5-5.1); Sodium 137 mEq/L (136-145); eGFR For African Americans > 60 (> 60); eGFR For Non-African Americans > 60 (> 60)
[2019-03-26] MEDS: *HR* HYDROcodone/Acet 5/325 mg TABLET PO PRN (08:37)
[2019-03-26] MEDS: Gabapentin 300 MG CAPSULE PO SCH ×3 (08:37→22:27)
[2019-03-26] MEDS: Folic Acid 1 MG TABLET PO SCH (08:37)
[2019-03-26] MEDS: risperiDONE 1 MG TABLET PO SCH (08:37)
[2019-03-26] MEDS: *HR* Rivaroxaban 10 MG TABLET PO SCH (08:37)
[2019-03-26] MEDS ORDERED: *HR* HYDROcodone/Acet 5/325 mg TABLET PO PRN (10:42)
[2019-03-26] MEDS: Furosemide 40 MG/4 ML VIAL IVP SCH ×2 (10:48→17:45)
[2019-03-26 11:32] LABS: Bilirubin,Urine Negative (Negative); Blood,Urine Negative (Negative); Clarity,Urine Cloudy (Clear); Color,Urine Yellow (Yellow); Glucose,Urine (UA) Normal (Normal); Ketones,Urine Negative (Negative); Leukocyte Esterase,Urine Negative (Negative); Nitrite,Urine Negative (Negative); PH,Urine 7.5 pH Units (5.0-8.0); Protein,Urine Negative (Neg-Trace); Specific Gravity,Urine 1.016 (1.010-1.025); Urobilinogen,Urine Normal (Normal)
[2019-03-26 11:35] LABS: Bacteria,Urine None Seen per hpf (None-Few); Hyaline Casts,Urine None Seen per lpf (None-Few); RBC,Urine 0-3 per hpf (0-3); Squamous Epithelial Cell,Urine Many per lpf (None-Few); WBC,Urine 0-3 per hpf (0-3)
[2019-03-26 13:06] LABS: Influenza B PCR Negative (Negative); Resp. Syncytial Virus PCR Negative (Negative)
[2019-03-26 13:10] LABS: Influenza A PCR Positive (Negative)
[2019-03-26] MEDS: Acetaminophen 325 MG TABLET PO PRN (19:20)
[2019-03-26] MEDS: Melatonin 3 MG TABLET PO SCH (22:27)
[2019-03-27 05:12] LABS: Hematocrit 36.9 % (35.3-44.9); Hemoglobin 10.9 g/dL (11.5-15.4); Mean Corpuscular HGB Conc 29.5 g/dL (31.6-35.5); Mean Corpuscular Hemoglobin 26.7 pg (28.0-33.3); Mean Corpuscular Volume 90.4 fL (83.0-100.0); Mean Platelet Volume 8.8 fL (9.4-12.4); Platelet Count 122 K/mcL (140-400); Red Blood Count 4.08 M/mcL (3.82-4.97); Red Cell Distribution Width 17.5 % (11.5-14.5); White Blood Count 4.8 K/mcL (4.3-11.1)
[2019-03-27 05:35] LABS: BUN/Creatinine Ratio 18 (6-26); Blood Urea Nitrogen 19 mg/dL (6-20); Calcium 8.8 mg/dL (8.6-10.3); Carbon Dioxide 38 mEq/L (23-29); Chloride 90 mEq/L (98-107); Glucose 105 mg/dL (70-105); Magnesium 1.8 mg/dL (1.6-2.6); Osmolality,Calculated 285 (280-300); Potassium 3.8 mEq/L (3.5-5.1); Sodium 136 mEq/L (136-145); eGFR For African Americans > 60 (> 60); eGFR For Non-African Americans 54 (> 60)
[2019-03-27] MEDS: Acetaminophen 325 MG TABLET PO PRN ×2 (05:55→12:41)
[2019-03-27] MEDS: Furosemide 40 MG/4 ML VIAL IVP SCH (09:58)
[2019-03-27] MEDS: Folic Acid 1 MG TABLET PO SCH (09:58)
[2019-03-27] MEDS: Gabapentin 300 MG CAPSULE PO SCH ×3 (09:58→22:18)
[2019-03-27] MEDS: risperiDONE 1 MG TABLET PO SCH (09:58)
[2019-03-27] MEDS: *HR* Rivaroxaban 10 MG TABLET PO SCH (09:58)
[2019-03-27] MEDS ORDERED: Ondansetron ODT 4 MG TAB.RAPDIS SL PRN (11:49)
[2019-03-27] MEDS ORDERED: Ketorolac 15 MG/ML VIAL IVP PRN (15:00)
[2019-03-27] MEDS: Melatonin 3 MG TABLET PO SCH (22:18)
[2019-03-28 07:01] VITALS: BP 118/61
[2019-03-28] MEDS ORDERED: Furosemide 40 MG TABLET PO SCH (09:00)
[2019-03-28] MEDS: risperiDONE 1 MG TABLET PO SCH (10:00)
[2019-03-28] MEDS: Gabapentin 300 MG CAPSULE PO SCH (10:00)
[2019-03-28] MEDS: *HR* Rivaroxaban 10 MG TABLET PO SCH (10:00)
[2019-03-28] MEDS: Folic Acid 1 MG TABLET PO SCH (10:00)
[2019-03-28] MEDS: Acetaminophen 325 MG TABLET PO PRN (10:24)
== END 2019-03-28 10:59 | disposition home health service (06) | DRG 291 ==
LOC: 2ANU → SUATTDRO 15:54
PROVIDERS: ADMIT Internal Medicine; ATTEND Internal Medicine